=== PATIENT | female | born 1965 | race African-American/Black ===

== ENCOUNTER 2022-03-24 17:26 | Inpatient (IN) | payer MEDICARE, MEDICAID ==
[~2022-03-24 17:26] MED LIST: Iopamidol-370 76% 500 ML 1 ML ONE
[2022-03-24 18:49] LABS: #Basophils 0.1 thou/uL (0.0-0.2); #Eosinphils 0.8 thou/uL (0.0-0.7); #Monocytes 1.3 thou/uL (0.11-0.59); #Neutrophils 13.2 thou/uL (1.40-6.50); %Basophils 0.4 % (0.0-1.0); %Eosinophils 4.2 % (0.0-10.0); %Lymphocytes 20.8 % (21.0-51.0); %Monocytes 6.5 % (0.0-10.0); %Neutrophils 68.2 % (42.0-75.0); Hemoglobin 10.4 g/dL (12.0-16.0); Mean Corpuscular HGB CONC 31.8 g/dL (32.0-36.0); Mean Corpuscular Hemoglobin 31.3 pg (27.0-31.0); Mean Corpuscular Volume 98.6 fl (78.0-98.0); Mean Platelet Volume 7.7 fL (7.4-10.4); Platelet Count 196 thou/uL (130-400); Red Blood Cell (RBC) Count 3.33 mill/uL (4.20-5.40); White Blood Cell (WBC) Count 19.4 thou/uL (4.8-10.8)
[2022-03-24 19:04] LABS: PTT 45.2 sec (22.9-36.1); Prothrombin Time 23.4 sec (12.0-14.7)
[2022-03-24] MEDS ORDERED: Famotidine/PF 20 mg/2ml Vial ONE (19:07)
[2022-03-24] MEDS ORDERED: methylPREDNISolone Sod Succ 40 MG VIAL ONE (19:07)
[2022-03-24] MEDS ORDERED: diphenhydrAMINE 50 MG/ML VIAL ONE (19:07)
[2022-03-24 19:09] LABS: ALT (SGPT) 25 U/L (8-55); AST (SGOT) 75 U/L (5-34); Albumin 2.1 g/dL (3.5-5.0); Alkaline Phosphatase 130 U/L (40-110); Anion Gap 16 mmol/L (10-20); BUN (Urea Nitrogen) 12 mg/dL (9.8-20.1); Calc. Creatinine Clearance 0 mL/min (70-130); Calcium 8.1 mg/dL (7.8-10.44); Carbon Dioxide 23 mmol/L (22-29); Chloride 101 mmol/L (98-107); Estimated GFR 50; Globulin 4.6 g/dL (2.4-3.5); Glucose 94 mg/dL (70-105); Potassium 3.6 mmol/L (3.5-5.1); Protein, Total 6.7 g/dL (6.0-8.3); Sodium 136 mmol/L (136-145)
[2022-03-24] MEDS ORDERED: Vancomycin 1 GM/200 ML (PREMIX) BAG ONE (20:37)
[2022-03-24] MEDS ORDERED: Cefepime 1 GM VIAL ONE (20:37)
[2022-03-24 21:53] LABS: Clarity Cloudy (Clear); Leukocyte Negative (Negative); Specific Gravity, Urine 1.015 (1.002-1.036)
[2022-03-24 21:54] LABS: Glucose, Urine (Dipstick) Negative (Negative); Ketone, Urine Trace mg/dL (Negative); Nitrite Negative (Negative); Protein, Urine (Dipstick) 30 mg/dL (Neg-Trace); Urobilinogen UNABLE TO INTERPRET mg/dL (Less than 2)
[2022-03-24 21:55] LABS: Bilirubin Large (Negative); Blood, Urine Negative (Negative)
[2022-03-24 22:00] LABS: RBC/HPF 0-3 HPF (0-3); WBC/HPF 21-50 HPF (0-3)
[2022-03-24 22:01] LABS: Bacteria/HPF 2+ HPF (None Seen)
[2022-03-24 22:02] LABS: Yeast-Budding 1+ HPF (None Seen)
[2022-03-24 22:09] LABS: Calcium Oxalate Crystals Rare HPF (None Seen)
[2022-03-24] MEDS ORDERED: Ondansetron PF 4 MG/2 ML Vial IVP PRN (23:08)
[2022-03-24] MEDS ORDERED: Guaifenesin DM 100-10/5 ML UDCUP PO PRN (23:08)
[2022-03-24] MEDS ORDERED: Furosemide 40 MG/4 ML VIAL SLOW IVP SCH (23:15)
[2022-03-24] MEDS ORDERED: Morphine 4 MG/ML VIAL SLOW IVP PRN (23:18)
[2022-03-24 23:57] VITALS: BMI 27.3
[2022-03-25] MEDS ORDERED: Meropenem 1 GM in Sodium Chloride 0.9% 100 ML IVPB SCH ×2 (02:00→06:00)
[2022-03-25 02:18] LABS: SARS-CoV-2 NAA Rapid Test Not Detected (NotDetected)
[2022-03-25 06:13] LABS: #Lymphocytes 2.7 thou/uL (1.20-3.40); #Monocytes 0.3 thou/uL (0.11-0.59); #Neutrophils 15.2 thou/uL (1.40-6.50); %Eosinophils 0.1 % (0.0-10.0); %Lymphocytes 14.6 % (21.0-51.0); %Monocytes 1.4 % (0.0-10.0); %Neutrophils 83.8 % (42.0-75.0); Hemoglobin 9.1 g/dL (12.0-16.0); Mean Corpuscular Hemoglobin 30.8 pg (27.0-31.0); Mean Corpuscular Volume 99.5 fl (78.0-98.0); Mean Platelet Volume 7.5 fL (7.4-10.4); Platelet Count 142 thou/uL (130-400); RBC Distribution Width 14.1 % (11.5-14.5); Red Blood Cell (RBC) Count 2.96 mill/uL (4.20-5.40); White Blood Cell (WBC) Count 18.1 thou/uL (4.8-10.8)
[2022-03-25 06:34] LABS: ALT (SGPT) 22 U/L (8-55); AST (SGOT) 69 U/L (5-34); Albumin 1.7 g/dL (3.5-5.0); Alkaline Phosphatase 120 U/L (40-110); Anion Gap 13 mmol/L (10-20); BUN (Urea Nitrogen) 13 mg/dL (9.8-20.1); Calc. Creatinine Clearance 60 mL/min (70-130); Calcium 7.8 mg/dL (7.8-10.44); Carbon Dioxide 22 mmol/L (22-29); Chloride 100 mmol/L (98-107); Estimated GFR 47; Globulin 4.3 g/dL (2.4-3.5); Glucose 142 mg/dL (70-105); Potassium 3.6 mmol/L (3.5-5.1); Sodium 131 mmol/L (136-145)
[2022-03-25] MEDS ORDERED: Electrolyte Replacement Protocol 1 EACH FS SCH (08:30)
[2022-03-25] MEDS ORDERED: Albumin 25% 25 GM/100 ML BOT IVPB SCH ×2 (08:30)
[2022-03-25 08:53] LABS: Magnesium 1.5 mg/dL (1.6-2.6); Phosphorus 4.2 mg/dL (2.3-4.7)
[2022-03-25] MEDS ORDERED: Magnesium 2 GM/50 ML(in water) 2 GM in Premix Bag 1 BAG IVPB SCH (09:00)
[2022-03-25] MEDS: Famotidine 20 MG TAB PO SCH ×2 (10:58→20:56)
[2022-03-25] MEDS: Meropenem 1 GM in Sodium Chloride 0.9% 100 ML IVPB SCH ×2 (10:58→18:10)
[2022-03-25] MEDS: Furosemide 40 MG/4 ML VIAL SLOW IVP SCH (10:59)
[2022-03-25 11:35] LABS: RBC Count-Automated (BF) 22 /cu.mm; WBC/Nucleated-Auto (BF) 67 /cu.mm
[2022-03-25 11:49] LABS: BF Color Yellow; Body Fluid Source Peritoneal Fluid; Clarity Hazy (Clear); Tube # EDTA
[2022-03-25 11:52] LABS: Cell Count Non Hematic 42 %
[2022-03-25 11:53] LABS: BF Segmented Neutrophils 30 %; Lymphocytes 28 %
[2022-03-25 13:11] LABS: Legionella Urinary Ag Negative (Negative); Strep pneumo Urine Ag NEGATIVE (NEGATIVE)
[2022-03-25] MEDS: Albumin 25% 25 GM/100 ML BOT IVPB SCH ×2 (16:45→20:56)
[2022-03-25] MEDS ORDERED: FLU VACC QS2022-23(6MOS UP)/PF 60 MCG/0.5 ML SYRINGE IM ONE (18:00)
[2022-03-25] MEDS: Sodium Bicarbonate Tab 325 MG TAB PO SCH (20:59)
[2022-03-25] MEDS: levETIRAcetam 500 MG TAB PO SCH (20:59)
[2022-03-25] MEDS: Sodium Chloride 1 GM TAB PO SCH (21:00)
[2022-03-26] MEDS: Meropenem 1 GM in Sodium Chloride 0.9% 100 ML IVPB SCH ×3 (01:55→17:58)
[2022-03-26] MEDS: Levothyroxine Sodium 75 MCG TAB PO SCH (05:50)
[2022-03-26] MEDS: Sodium Chloride 1 GM TAB PO SCH ×3 (05:50→21:00)
[2022-03-26 06:35] LABS: #Eosinphils 0.3 thou/uL (0.0-0.7); #Lymphocytes 2.6 thou/uL (1.20-3.40); #Monocytes 1.1 thou/uL (0.11-0.59); #Neutrophils 12.6 thou/uL (1.40-6.50); %Basophils 0.1 % (0.0-1.0); %Eosinophils 1.9 % (0.0-10.0); %Lymphocytes 15.8 % (21.0-51.0); %Monocytes 6.4 % (0.0-10.0); %Neutrophils 75.8 % (42.0-75.0); Hemoglobin 8.8 g/dL (12.0-16.0); Mean Corpuscular HGB CONC 30.8 g/dL (32.0-36.0); Mean Corpuscular Hemoglobin 30.6 pg (27.0-31.0); Mean Corpuscular Volume 99.3 fl (78.0-98.0); Mean Platelet Volume 7.9 fL (7.4-10.4); Platelet Count 167 thou/uL (130-400); RBC Distribution Width 14.2 % (11.5-14.5); Red Blood Cell (RBC) Count 2.87 mill/uL (4.20-5.40); White Blood Cell (WBC) Count 16.6 thou/uL (4.8-10.8)
[2022-03-26 06:41] LABS: INR-International Normal Ratio 2.1; PTT 45.1 sec (22.9-36.1); Prothrombin Time 24.4 sec (12.0-14.7)
[2022-03-26 06:56] LABS: ALT (SGPT) 19 U/L (8-55); AST (SGOT) 59 U/L (5-34); Albumin 2.3 g/dL (3.5-5.0); Alkaline Phosphatase 108 U/L (40-110); Anion Gap 14 mmol/L (10-20); BUN (Urea Nitrogen) 13 mg/dL (9.8-20.1); Bilirubin, Total 8.4 mg/dL (0.2-1.2); Calc. Creatinine Clearance 68 mL/min (70-130); Calcium 8.2 mg/dL (7.8-10.44); Carbon Dioxide 22 mmol/L (22-29); Chloride 104 mmol/L (98-107); Estimated GFR 55; Globulin 3.7 g/dL (2.4-3.5); Glucose 93 mg/dL (70-105); Sodium 137 mmol/L (136-145)
[2022-03-26] MEDS ORDERED: Potassium Chloride 20 MEQ TAB PO SCH (08:00)
[2022-03-26] MEDS: Furosemide 40 MG/4 ML VIAL SLOW IVP SCH (12:14)
[2022-03-26] MEDS: Ascorbic Acid 500 mg Chewable Tablet PO SCH (12:14)
[2022-03-26] MEDS: Folic Acid 1 MG TAB PO SCH (12:14)
[2022-03-26] MEDS: levETIRAcetam 500 MG TAB PO SCH ×2 (12:15→20:08)
[2022-03-26] MEDS: Thiamine 100 MG TAB PO SCH (12:15)
[2022-03-26] MEDS: PHOS-NAK 1 PKT PACK PO SCH (12:16)
[2022-03-26] MEDS: Sodium Bicarbonate Tab 325 MG TAB PO SCH ×2 (12:16→20:08)
[2022-03-26] MEDS: Spironolactone 25 MG TAB PO SCH ×2 (12:17→17:55)
[2022-03-26] MEDS: Famotidine 20 MG TAB PO SCH ×2 (12:17→20:08)
[2022-03-26] MEDS: Cholecalciferol 1,000 UNITS (25 MCG) TAB PO SCH (12:17)
[2022-03-27] MEDS: Meropenem 1 GM in Sodium Chloride 0.9% 100 ML IVPB SCH ×2 (01:08→09:52)
[2022-03-27] MEDS: Levothyroxine Sodium 75 MCG TAB PO SCH (05:13)
[2022-03-27] MEDS: Sodium Chloride 1 GM TAB PO SCH ×3 (05:13→21:30)
[2022-03-27 05:57] LABS: #Eosinphils 0.7 thou/uL (0.0-0.7); #Lymphocytes 3.1 thou/uL (1.20-3.40); #Monocytes 0.9 thou/uL (0.11-0.59); #Neutrophils 7.5 thou/uL (1.40-6.50); %Basophils 0.1 % (0.0-1.0); %Eosinophils 5.4 % (0.0-10.0); %Lymphocytes 25.5 % (21.0-51.0); %Monocytes 7.4 % (0.0-10.0); %Neutrophils 61.6 % (42.0-75.0); Hemoglobin 8.5 g/dL (12.0-16.0); Mean Corpuscular HGB CONC 31.5 g/dL (32.0-36.0); Mean Corpuscular Hemoglobin 31.2 pg (27.0-31.0); Mean Corpuscular Volume 99.1 fl (78.0-98.0); Mean Platelet Volume 7.9 fL (7.4-10.4); Platelet Count 155 thou/uL (130-400); Red Blood Cell (RBC) Count 2.73 mill/uL (4.20-5.40); White Blood Cell (WBC) Count 12.2 thou/uL (4.8-10.8)
[2022-03-27 06:10] LABS: PTT 37.3 sec (22.9-36.1); Prothrombin Time 23.1 sec (12.0-14.7)
[2022-03-27 06:20] LABS: ALT (SGPT) 22 U/L (8-55); AST (SGOT) 80 U/L (5-34); Albumin 2.1 g/dL (3.5-5.0); Alkaline Phosphatase 99 U/L (40-110); Anion Gap 12 mmol/L (10-20); BUN (Urea Nitrogen) 11 mg/dL (9.8-20.1); Bilirubin, Total 7.9 mg/dL (0.2-1.2); Calc. Creatinine Clearance 89 mL/min (70-130); Calcium 7.7 mg/dL (7.8-10.44); Carbon Dioxide 24 mmol/L (22-29); Chloride 106 mmol/L (98-107); Estimated GFR 76; Globulin 3.3 g/dL (2.4-3.5); Glucose 68 mg/dL (70-105); Protein, Total 5.4 g/dL (6.0-8.3); Sodium 139 mmol/L (136-145)
[2022-03-27] MEDS ORDERED: Potassium Chloride 20 MEQ TAB PO SCH (08:00)
[2022-03-27] MEDS: Sodium Bicarbonate Tab 325 MG TAB PO SCH ×2 (08:46→19:54)
[2022-03-27] MEDS: Furosemide 40 MG/4 ML VIAL SLOW IVP SCH (08:47)
[2022-03-27] MEDS: Ascorbic Acid 500 mg Chewable Tablet PO SCH (08:47)
[2022-03-27] MEDS: Famotidine 20 MG TAB PO SCH ×2 (08:47→19:54)
[2022-03-27] MEDS: Folic Acid 1 MG TAB PO SCH (08:47)
[2022-03-27] MEDS: Cholecalciferol 1,000 UNITS (25 MCG) TAB PO SCH (08:47)
[2022-03-27] MEDS: levETIRAcetam 500 MG TAB PO SCH ×2 (08:47→19:54)
[2022-03-27] MEDS: Spironolactone 25 MG TAB PO SCH ×2 (08:47→17:36)
[2022-03-27] MEDS: PHOS-NAK 1 PKT PACK PO SCH (08:47)
[2022-03-27] MEDS: Thiamine 100 MG TAB PO SCH (08:48)
[2022-03-27 11:39] LABS: Bacteria/HPF None Seen HPF (None Seen); Bilirubin Negative (Negative); Blood, Urine Negative (Negative); Clarity Clear (Clear); Glucose, Urine (Dipstick) Normal (Negative); Ketone, Urine Negative (Negative); Leukocyte 75 Leu/uL (Negative); Nitrite Negative (Negative); Protein, Urine (Dipstick) Negative (Neg-Trace); RBC/HPF 0-3 HPF (0-3); Specific Gravity, Urine 1.007 (1.002-1.036); Urobilinogen Normal mg/dL (Less than 2)
[2022-03-27] MEDS: cefTRIAXone\\ROCEPHIN 1 GM in Sodium Chloride 0.9% 100 ML IVPB SCH (14:21)
[2022-03-27] MEDS: Azithromycin 500 MG in Sodium Chloride 0.9% 250 ML 250 ML IVPB SCH (15:17)
[2022-03-28] MEDS: Sodium Chloride 1 GM TAB PO SCH ×3 (04:19→20:44)
[2022-03-28] MEDS: Levothyroxine Sodium 75 MCG TAB PO SCH (04:20)
[2022-03-28 07:34] LABS: #Eosinphils 1.2 thou/uL (0.0-0.7); #Lymphocytes 3.7 thou/uL (1.20-3.40); #Monocytes 1.1 thou/uL (0.11-0.59); #Neutrophils 9.7 thou/uL (1.40-6.50); %Basophils 0.3 % (0.0-1.0); %Eosinophils 7.5 % (0.0-10.0); %Lymphocytes 23.4 % (21.0-51.0); %Monocytes 7.1 % (0.0-10.0); %Neutrophils 61.8 % (42.0-75.0); Mean Corpuscular HGB CONC 31.9 g/dL (32.0-36.0); Mean Corpuscular Hemoglobin 31.7 pg (27.0-31.0); Mean Corpuscular Volume 99.3 fl (78.0-98.0); Mean Platelet Volume 7.4 fL (7.4-10.4); Platelet Count 155 thou/uL (130-400); RBC Distribution Width 14.2 % (11.5-14.5); Red Blood Cell (RBC) Count 2.84 mill/uL (4.20-5.40); White Blood Cell (WBC) Count 15.7 thou/uL (4.8-10.8)
[2022-03-28 07:58] LABS: ALT (SGPT) 23 U/L (8-55); AST (SGOT) 78 U/L (5-34); Alkaline Phosphatase 97 U/L (40-110); Anion Gap 10 mmol/L (10-20); BUN (Urea Nitrogen) 10 mg/dL (9.8-20.1); Bilirubin, Total 7.5 mg/dL (0.2-1.2); Calc. Creatinine Clearance 101 mL/min (70-130); Calcium 7.6 mg/dL (7.8-10.44); Carbon Dioxide 26 mmol/L (22-29); Chloride 106 mmol/L (98-107); Estimated GFR 88; Globulin 3.3 g/dL (2.4-3.5); Glucose 75 mg/dL (70-105); Potassium 3.2 mmol/L (3.5-5.1); Protein, Total 5.3 g/dL (6.0-8.3); Sodium 139 mmol/L (136-145)
[2022-03-28] MEDS ORDERED: Potassium Chloride 20 MEQ TAB PO SCH (08:45)
[2022-03-28] MEDS: PHOS-NAK 1 PKT PACK PO SCH (09:13)
[2022-03-28] MEDS: Cholecalciferol 1,000 UNITS (25 MCG) TAB PO SCH (09:15)
[2022-03-28] MEDS: Folic Acid 1 MG TAB PO SCH (09:15)
[2022-03-28] MEDS: Ascorbic Acid 500 mg Chewable Tablet PO SCH (09:15)
[2022-03-28] MEDS: levETIRAcetam 500 MG TAB PO SCH ×2 (09:16→20:44)
[2022-03-28] MEDS: Spironolactone 25 MG TAB PO SCH ×2 (09:16→16:01)
[2022-03-28] MEDS: Sodium Bicarbonate Tab 325 MG TAB PO SCH ×2 (09:18→20:44)
[2022-03-28] MEDS: Famotidine 20 MG TAB PO SCH ×2 (09:18→20:43)
[2022-03-28] MEDS: Thiamine 100 MG TAB PO SCH (09:19)
[2022-03-28] MEDS: Furosemide 40 MG/4 ML VIAL SLOW IVP SCH (09:21)
[2022-03-28] MEDS: cefTRIAXone\\ROCEPHIN 1 GM in Sodium Chloride 0.9% 100 ML IVPB SCH (12:00)
[2022-03-28] MEDS: Azithromycin 500 MG in Sodium Chloride 0.9% 250 ML 250 ML IVPB SCH (13:28)
[2022-03-29] MEDS: Levothyroxine Sodium 75 MCG TAB PO SCH (05:49)
[2022-03-29] MEDS: Sodium Chloride 1 GM TAB PO SCH ×3 (05:49→20:16)
[2022-03-29 06:33] LABS: ALT (SGPT) 19 U/L (8-55); AST (SGOT) 77 U/L (5-34); Albumin 1.8 g/dL (3.5-5.0); Alkaline Phosphatase 110 U/L (40-110); Anion Gap 13 mmol/L (10-20); BUN (Urea Nitrogen) 9 mg/dL (9.8-20.1); Bilirubin, Total 7.5 mg/dL (0.2-1.2); Calc. Creatinine Clearance 117 mL/min (70-130); Calcium 7.4 mg/dL (7.8-10.44); Carbon Dioxide 24 mmol/L (22-29); Chloride 104 mmol/L (98-107); Estimated GFR 103; Globulin 3.4 g/dL (2.4-3.5); Glucose 77 mg/dL (70-105); Potassium 3.6 mmol/L (3.5-5.1); Protein, Total 5.2 g/dL (6.0-8.3); Sodium 137 mmol/L (136-145)
[2022-03-29 07:10] LABS: #Eosinphils 1.5 thou/uL (0.0-0.7); #Lymphocytes 4.3 thou/uL (1.20-3.40); #Monocytes 1.2 thou/uL (0.11-0.59); #Neutrophils 11.9 thou/uL (1.40-6.50); %Basophils 0.2 % (0.0-1.0); %Eosinophils 7.7 % (0.0-10.0); %Lymphocytes 22.9 % (21.0-51.0); %Monocytes 6.3 % (0.0-10.0); %Neutrophils 62.9 % (42.0-75.0); Hemoglobin 8.8 g/dL (12.0-16.0); Mean Corpuscular HGB CONC 31.8 g/dL (32.0-36.0); Mean Corpuscular Hemoglobin 31.4 pg (27.0-31.0); Mean Corpuscular Volume 98.7 fl (78.0-98.0); Mean Platelet Volume 8.1 fL (7.4-10.4); Platelet Count 145 10x3/uL (130-400); RBC Distribution Width 14.3 % (11.5-14.5); Red Blood Cell (RBC) Count 2.79 mill/uL (4.20-5.40); White Blood Cell (WBC) Count 18.9 10x3/uL (4.8-10.8)
[2022-03-29] MEDS: levETIRAcetam 500 MG TAB PO SCH ×2 (10:03→20:16)
[2022-03-29] MEDS: PHOS-NAK 1 PKT PACK PO SCH (10:03)
[2022-03-29] MEDS: Folic Acid 1 MG TAB PO SCH (10:03)
[2022-03-29] MEDS: Spironolactone 25 MG TAB PO SCH ×2 (10:04→19:10)
[2022-03-29] MEDS: Cholecalciferol 1,000 UNITS (25 MCG) TAB PO SCH (10:04)
[2022-03-29] MEDS: Thiamine 100 MG TAB PO SCH (10:04)
[2022-03-29] MEDS: Sodium Bicarbonate Tab 325 MG TAB PO SCH ×2 (10:04→20:16)
[2022-03-29] MEDS: Famotidine 20 MG TAB PO SCH ×2 (10:05→20:16)
[2022-03-29] MEDS: Ascorbic Acid 500 mg Chewable Tablet PO SCH (10:05)
[2022-03-29] MEDS: cefTRIAXone\\ROCEPHIN 1 GM in Sodium Chloride 0.9% 100 ML IVPB SCH (15:46)
[2022-03-29] MEDS: Furosemide 40 MG/4 ML VIAL SLOW IVP SCH (15:48)
[2022-03-29] MEDS: Azithromycin 500 MG in Sodium Chloride 0.9% 250 ML 250 ML IVPB SCH (19:09)
[2022-03-30] MEDS: Sodium Chloride 1 GM TAB PO SCH (05:49)
[2022-03-30] MEDS: Levothyroxine Sodium 75 MCG TAB PO SCH (05:49)
[2022-03-30] MEDS ORDERED: Furosemide 40 MG TAB PO SCH (07:30)
[2022-03-30 07:37] LABS: Hemoglobin 9.3 g/dL (12.0-16.0); Mean Corpuscular HGB CONC 32.5 g/dL (32.0-36.0); Mean Corpuscular Hemoglobin 32.1 pg (27.0-31.0); Mean Platelet Volume 7.5 fL (7.4-10.4); Platelet Count 143 10x3/uL (130-400); RBC Distribution Width 14.3 % (11.5-14.5); White Blood Cell (WBC) Count 20.4 10x3/uL (4.8-10.8)
[2022-03-30 07:52] LABS: ALT (SGPT) 21 U/L (8-55); AST (SGOT) 65 U/L (5-34); Alkaline Phosphatase 108 U/L (40-110); Anion Gap 11 mmol/L (10-20); BUN (Urea Nitrogen) 8 mg/dL (9.8-20.1); Bilirubin, Total 7.2 mg/dL (0.2-1.2); Calc. Creatinine Clearance 119 mL/min (70-130); Calcium 7.5 mg/dL (7.8-10.44); Carbon Dioxide 26 mmol/L (22-29); Chloride 105 mmol/L (98-107); Estimated GFR 103; Globulin 3.6 g/dL (2.4-3.5); Glucose 88 mg/dL (70-105); Potassium 3.9 mmol/L (3.5-5.1); Protein, Total 5.6 g/dL (6.0-8.3); Sodium 138 mmol/L (136-145)
[2022-03-30 08:45] LABS: Band 3 % (5-11); Eosinophils 3 % (0-10); Lymphocytes 25 % (21-51); MDiff Complete? YES; Monocytes 7 % (0-10); Neutrophil 62 % (42-75); Platelet Morphology Comment Appears Adequate; Polychromasia SLIGHT = 2-3 cells (100X) (0-2/hpf)
[2022-03-30] MEDS: PHOS-NAK 1 PKT PACK PO SCH (09:24)
[2022-03-30] MEDS: Sodium Bicarbonate Tab 325 MG TAB PO SCH (09:24)
[2022-03-30] MEDS: Spironolactone 25 MG TAB PO SCH ×2 (09:25→18:05)
[2022-03-30] MEDS: levETIRAcetam 500 MG TAB PO SCH ×2 (09:25→20:37)
[2022-03-30] MEDS: Famotidine 20 MG TAB PO SCH ×2 (09:25→20:37)
[2022-03-30] MEDS: Cholecalciferol 1,000 UNITS (25 MCG) TAB PO SCH (09:25)
[2022-03-30] MEDS: Folic Acid 1 MG TAB PO SCH (09:25)
[2022-03-30] MEDS: Thiamine 100 MG TAB PO SCH (09:25)
[2022-03-30] MEDS: Ascorbic Acid 500 mg Chewable Tablet PO SCH (09:26)
[2022-03-30] MEDS ORDERED: Sodium Chloride 0.45% 500 ML IV SCH (12:00)
[2022-03-30] MEDS: cefTRIAXone\\ROCEPHIN 1 GM in Sodium Chloride 0.9% 100 ML IVPB SCH (12:39)
[2022-03-30] MEDS: Azithromycin 500 MG in Sodium Chloride 0.9% 250 ML 250 ML IVPB SCH (13:09)
[2022-03-31] MEDS: Levothyroxine Sodium 75 MCG TAB PO SCH (05:10)
[2022-03-31 05:58] LABS: #Basophils 0.1 thou/uL (0.0-0.2); #Eosinphils 1.5 thou/uL (0.0-0.7); #Lymphocytes 4.3 thou/uL (1.20-3.40); #Monocytes 1.6 thou/uL (0.11-0.59); #Neutrophils 15.4 thou/uL (1.40-6.50); %Basophils 0.2 % (0.0-1.0); %Eosinophils 6.7 % (0.0-10.0); %Lymphocytes 18.7 % (21.0-51.0); %Monocytes 7.1 % (0.0-10.0); %Neutrophils 67.2 % (42.0-75.0); Hemoglobin 9.1 g/dL (12.0-16.0); Mean Corpuscular HGB CONC 31.6 g/dL (32.0-36.0); Mean Corpuscular Hemoglobin 31.2 pg (27.0-31.0); Mean Corpuscular Volume 98.6 fl (78.0-98.0); Mean Platelet Volume 8.4 fL (7.4-10.4); Platelet Count 118 10x3/uL (130-400); RBC Distribution Width 14.5 % (11.5-14.5); Red Blood Cell (RBC) Count 2.92 mill/uL (4.20-5.40); White Blood Cell (WBC) Count 22.9 10x3/uL (4.8-10.8)
[2022-03-31 06:20] LABS: ALT (SGPT) 17 U/L (8-55); AST (SGOT) 58 U/L (5-34); Albumin 1.9 g/dL (3.5-5.0); Alkaline Phosphatase 119 U/L (40-110); Anion Gap 12 mmol/L (10-20); BUN (Urea Nitrogen) 9 mg/dL (9.8-20.1); Bilirubin, Total 7.2 mg/dL (0.2-1.2); Calc. Creatinine Clearance 103 mL/min (70-130); Calcium 7.4 mg/dL (7.8-10.44); Carbon Dioxide 22 mmol/L (22-29); Chloride 104 mmol/L (98-107); Estimated GFR 91; Globulin 3.6 g/dL (2.4-3.5); Glucose 101 mg/dL (70-105); Potassium 3.6 mmol/L (3.5-5.1); Protein, Total 5.5 g/dL (6.0-8.3); Sodium 134 mmol/L (136-145)
[2022-03-31 07:04] LABS: HBSAg Index 0.32 S/CO (0-0.99); Hep B Surf Ag Non-Reactive S/CO (NonReactive); Hep C IgG Ab Non-Reactive (NonReactive); Hep C Index 0.12 S/CO (0-0.79)
[2022-03-31] MEDS: Cholecalciferol 1,000 UNITS (25 MCG) TAB PO SCH (07:47)
[2022-03-31] MEDS: Spironolactone 25 MG TAB PO SCH ×2 (07:47→17:11)
[2022-03-31] MEDS: Ascorbic Acid 500 mg Chewable Tablet PO SCH (07:47)
[2022-03-31] MEDS: levETIRAcetam 500 MG TAB PO SCH ×2 (07:48→20:46)
[2022-03-31] MEDS: Thiamine 100 MG TAB PO SCH (07:48)
[2022-03-31] MEDS: Famotidine 20 MG TAB PO SCH ×2 (07:48→20:46)
[2022-03-31] MEDS: Folic Acid 1 MG TAB PO SCH (07:48)
[2022-03-31] MEDS ORDERED: Vancomycin 1.5 GRAM/300 ML BAG 1.5 GM in Premix Bag 1 BAG IVPB SCH (08:15)
[2022-03-31 11:09] LABS: Syphilis Antibody Nonreactive (Nonreactive); Syphilis Antibody Index 0.07 S/CO (<1.00 Non-Reactive)
[2022-03-31] MEDS: cefTRIAXone\\ROCEPHIN 1 GM in Sodium Chloride 0.9% 100 ML IVPB SCH (12:20)
[2022-03-31] MEDS ORDERED: Ketamine 50 MG/ML (10ML VIAL) ONE (13:56)
[2022-03-31] MEDS ORDERED: PROPOFOL 200 MG/20 ML VIAL ONE (14:03)
[2022-03-31] MEDS ORDERED: Vancomycin 1 GM in Premix Bag 1 BAG IVPB SCH (21:00)
[2022-04-01] MEDS: Levothyroxine Sodium 75 MCG TAB PO SCH (05:51)
[2022-04-01 06:37] LABS: HIV (1/2) Antibody/Antigen Non-Reactive (NonReactive); HIV 1/2 INDEX 0.17 S/CO (<1.00)
[2022-04-01 07:21] LABS: #Basophils 0.1 thou/uL (0.0-0.2); #Eosinphils 1.4 thou/uL (0.0-0.7); #Lymphocytes 4.6 thou/uL (1.20-3.40); #Monocytes 1.7 thou/uL (0.11-0.59); #Neutrophils 15.4 thou/uL (1.40-6.50); %Basophils 0.4 % (0.0-1.0); %Lymphocytes 19.7 % (21.0-51.0); %Monocytes 7.4 % (0.0-10.0); %Neutrophils 66.5 % (42.0-75.0); Hemoglobin 10.9 g/dL (12.0-16.0); Mean Corpuscular HGB CONC 31.8 g/dL (32.0-36.0); Mean Corpuscular Hemoglobin 31.8 pg (27.0-31.0); Mean Platelet Volume 8.7 fL (7.4-10.4); Platelet Count 140 10x3/uL (130-400); RBC Distribution Width 14.8 % (11.5-14.5); Red Blood Cell (RBC) Count 3.42 mill/uL (4.20-5.40); White Blood Cell (WBC) Count 23.1 10x3/uL (4.8-10.8)
[2022-04-01 07:33] LABS: ALT (SGPT) 18 U/L (8-55); AST (SGOT) 63 U/L (5-34); Albumin 1.9 g/dL (3.5-5.0); Alkaline Phosphatase 131 U/L (40-110); Anion Gap 15 mmol/L (10-20); BUN (Urea Nitrogen) 9 mg/dL (9.8-20.1); Bilirubin, Total 8.6 mg/dL (0.2-1.2); Calc. Creatinine Clearance 103 mL/min (70-130); Calcium 7.9 mg/dL (7.8-10.44); Carbon Dioxide 20 mmol/L (22-29); Chloride 102 mmol/L (98-107); Estimated GFR 91; Globulin 4.3 g/dL (2.4-3.5); Glucose 74 mg/dL (70-105); Potassium 3.7 mmol/L (3.5-5.1); Protein, Total 6.2 g/dL (6.0-8.3); Sodium 133 mmol/L (136-145)
[2022-04-01] MEDS: Ascorbic Acid 500 mg Chewable Tablet PO SCH (10:29)
[2022-04-01] MEDS: Cholecalciferol 1,000 UNITS (25 MCG) TAB PO SCH (10:29)
[2022-04-01] MEDS: Famotidine 20 MG TAB PO SCH ×2 (10:29→20:32)
[2022-04-01] MEDS: levETIRAcetam 500 MG TAB PO SCH ×2 (10:29→20:32)
[2022-04-01] MEDS: Folic Acid 1 MG TAB PO SCH (10:29)
[2022-04-01] MEDS: Thiamine 100 MG TAB PO SCH (10:29)
[2022-04-01] MEDS: Spironolactone 25 MG TAB PO SCH ×2 (10:34→17:22)
[2022-04-01 20:22] LABS: Vancomycin, Trough 14.9 ug/mL
[2022-04-02] MEDS: Levothyroxine Sodium 75 MCG TAB PO SCH (05:07)
[2022-04-02 06:06] LABS: #Basophils 0.1 thou/uL (0.0-0.2); #Eosinphils 1.3 thou/uL (0.0-0.7); #Lymphocytes 3.9 thou/uL (1.20-3.40); #Monocytes 1.4 thou/uL (0.11-0.59); %Basophils 0.3 % (0.0-1.0); %Eosinophils 6.7 % (0.0-10.0); %Monocytes 7.4 % (0.0-10.0); %Neutrophils 64.6 % (42.0-75.0); Hemoglobin 8.9 g/dL (12.0-16.0); Mean Corpuscular HGB CONC 30.9 g/dL (32.0-36.0); Mean Corpuscular Hemoglobin 30.1 pg (27.0-31.0); Mean Corpuscular Volume 97.6 fl (78.0-98.0); Mean Platelet Volume 8.5 fL (7.4-10.4); Platelet Count 123 10x3/uL (130-400); RBC Distribution Width 14.7 % (11.5-14.5); Red Blood Cell (RBC) Count 2.96 mill/uL (4.20-5.40); White Blood Cell (WBC) Count 18.6 10x3/uL (4.8-10.8)
[2022-04-02 06:32] LABS: ALT (SGPT) 17 U/L (8-55); AST (SGOT) 59 U/L (5-34); Albumin 1.8 g/dL (3.5-5.0); Alkaline Phosphatase 112 U/L (40-110); Anion Gap 9 mmol/L (10-20); BUN (Urea Nitrogen) 10 mg/dL (9.8-20.1); Bilirubin, Total 7.2 mg/dL (0.2-1.2); Calc. Creatinine Clearance 106 mL/min (70-130); Calcium 7.3 mg/dL (7.8-10.44); Carbon Dioxide 26 mmol/L (22-29); Chloride 105 mmol/L (98-107); Estimated GFR 94; Globulin 3.3 g/dL (2.4-3.5); Glucose 77 mg/dL (70-105); Potassium 3.8 mmol/L (3.5-5.1); Protein, Total 5.1 g/dL (6.0-8.3); Sodium 136 mmol/L (136-145)
[2022-04-02] MEDS: Famotidine 20 MG TAB PO SCH ×2 (09:25→20:54)
[2022-04-02] MEDS: Folic Acid 1 MG TAB PO SCH (09:25)
[2022-04-02] MEDS: Ascorbic Acid 500 mg Chewable Tablet PO SCH (09:25)
[2022-04-02] MEDS: levETIRAcetam 500 MG TAB PO SCH ×2 (09:25→20:54)
[2022-04-02] MEDS: Spironolactone 25 MG TAB PO SCH ×2 (09:25→17:24)
[2022-04-02] MEDS: Thiamine 100 MG TAB PO SCH (09:25)
[2022-04-02] MEDS: Cholecalciferol 1,000 UNITS (25 MCG) TAB PO SCH (09:26)
[2022-04-03] MEDS: Levothyroxine Sodium 75 MCG TAB PO SCH (05:16)
[2022-04-03 06:31] LABS: ALT (SGPT) 18 U/L (8-55); AST (SGOT) 67 U/L (5-34); Albumin 1.7 g/dL (3.5-5.0); Alkaline Phosphatase 111 U/L (40-110); Anion Gap 11 mmol/L (10-20); BUN (Urea Nitrogen) 11 mg/dL (9.8-20.1); Bilirubin, Total 6.5 mg/dL (0.2-1.2); Calc. Creatinine Clearance 108 mL/min (70-130); Calcium 7.6 mg/dL (7.8-10.44); Carbon Dioxide 22 mmol/L (22-29); Chloride 104 mmol/L (98-107); Estimated GFR 95; Globulin 3.7 g/dL (2.4-3.5); Glucose 91 mg/dL (70-105); Potassium 3.7 mmol/L (3.5-5.1); Protein, Total 5.4 g/dL (6.0-8.3); Sodium 133 mmol/L (136-145)
[2022-04-03 08:04] LABS: Mean Corpuscular Hemoglobin 30.8 pg (27.0-31.0); Mean Corpuscular Volume 96.2 fl (78.0-98.0); Mean Platelet Volume 8.5 fL (7.4-10.4); Platelet Count 129 10x3/uL (130-400); RBC Distribution Width 14.8 % (11.5-14.5); Red Blood Cell (RBC) Count 2.92 mill/uL (4.20-5.40); White Blood Cell (WBC) Count 20.6 10x3/uL (4.8-10.8)
[2022-04-03 09:31] LABS: Band 1 % (5-11); Eosinophils 9 % (0-10); Lymphocytes 22 % (21-51); MDiff Complete? YES; Monocytes 3 % (0-10); Neutrophil 65 % (42-75); RBC Morphology Normal
[2022-04-03] MEDS: Spironolactone 25 MG TAB PO SCH ×2 (10:06→19:46)
[2022-04-03] MEDS: Thiamine 100 MG TAB PO SCH (10:07)
[2022-04-03] MEDS: Folic Acid 1 MG TAB PO SCH (10:07)
[2022-04-03] MEDS: Ascorbic Acid 500 mg Chewable Tablet PO SCH (10:07)
[2022-04-03] MEDS: Cholecalciferol 1,000 UNITS (25 MCG) TAB PO SCH (10:07)
[2022-04-03] MEDS: levETIRAcetam 500 MG TAB PO SCH ×2 (10:07→21:33)
[2022-04-03] MEDS: Famotidine 20 MG TAB PO SCH ×2 (10:07→21:33)
[2022-04-04 05:51] LABS: #Basophils 0.1 thou/uL (0.0-0.2); #Eosinphils 1.3 thou/uL (0.0-0.7); #Monocytes 1.3 thou/uL (0.11-0.59); #Neutrophils 12.9 thou/uL (1.40-6.50); %Basophils 0.5 % (0.0-1.0); %Eosinophils 6.5 % (0.0-10.0); %Lymphocytes 20.4 % (21.0-51.0); %Monocytes 6.5 % (0.0-10.0); %Neutrophils 66.1 % (42.0-75.0); Hemoglobin 9.9 g/dL (12.0-16.0); Mean Corpuscular HGB CONC 31.1 g/dL (32.0-36.0); Mean Corpuscular Hemoglobin 31.1 pg (27.0-31.0); Mean Platelet Volume 8.2 fL (7.4-10.4); Platelet Count 146 10x3/uL (130-400); RBC Distribution Width 15.5 % (11.5-14.5); Red Blood Cell (RBC) Count 3.18 mill/uL (4.20-5.40); White Blood Cell (WBC) Count 19.5 10x3/uL (4.8-10.8)
[2022-04-04] MEDS: Levothyroxine Sodium 75 MCG TAB PO SCH (06:07)
[2022-04-04 06:41] LABS: ALT (SGPT) 21 U/L (8-55); AST (SGOT) 73 U/L (5-34); Albumin 1.8 g/dL (3.5-5.0); Alkaline Phosphatase 132 U/L (40-110); Anion Gap 12 mmol/L (10-20); BUN (Urea Nitrogen) 12 mg/dL (9.8-20.1); Bilirubin, Total 6.4 mg/dL (0.2-1.2); Calc. Creatinine Clearance 101 mL/min (70-130); Calcium 7.8 mg/dL (7.8-10.44); Carbon Dioxide 24 mmol/L (22-29); Chloride 103 mmol/L (98-107); Estimated GFR 88; Globulin 3.7 g/dL (2.4-3.5); Glucose 74 mg/dL (70-105); Protein, Total 5.5 g/dL (6.0-8.3); Sodium 135 mmol/L (136-145)
[2022-04-04] MEDS: Ascorbic Acid 500 mg Chewable Tablet PO SCH (09:01)
[2022-04-04] MEDS: levETIRAcetam 500 MG TAB PO SCH ×2 (09:01→21:30)
[2022-04-04] MEDS: Thiamine 100 MG TAB PO SCH (09:01)
[2022-04-04] MEDS: Cholecalciferol 1,000 UNITS (25 MCG) TAB PO SCH (09:01)
[2022-04-04] MEDS: Spironolactone 25 MG TAB PO SCH ×2 (09:01→16:31)
[2022-04-04] MEDS: Folic Acid 1 MG TAB PO SCH (09:01)
[2022-04-04] MEDS: Famotidine 20 MG TAB PO SCH ×2 (09:01→21:00)
[2022-04-04] MEDS ORDERED: Sodium Bicarbonate 2.5 MEQ/5 ML VIAL ONE (13:54)
[2022-04-04] MEDS ORDERED: Lidocaine 2% PF 5 ML VIAL ONE (13:54)
[2022-04-04 15:24] LABS: RBC Count-Automated (BF) 67 /cu.mm; WBC/Nucleated-Auto (BF) 166 /cu.mm
[2022-04-04 15:40] LABS: BF Color Yellow; Body Fluid Source Paracentesis Fluid; Clarity Hazy (Clear); Tube # EDTA
[2022-04-04 15:41] LABS: BF Segmented Neutrophils 41 %; Cell Count Non Hematic 43 %; Lymphocytes 16 %
[2022-04-04] MEDS: Albumin 25% 25 GM/100 ML BOT IVPB SCH ×2 (16:31→22:46)
[2022-04-05] MEDS: Albumin 25% 25 GM/100 ML BOT IVPB SCH (04:11)
[2022-04-05] MEDS: Levothyroxine Sodium 75 MCG TAB PO SCH (05:30)
[2022-04-05 06:26] LABS: #Lymphocytes 2.9 thou/uL (1.20-3.40); #Monocytes 0.9 thou/uL (0.11-0.59); #Neutrophils 9.1 thou/uL (1.40-6.50); %Basophils 0.2 % (0.0-1.0); %Eosinophils 7.1 % (0.0-10.0); %Lymphocytes 20.6 % (21.0-51.0); %Monocytes 6.4 % (0.0-10.0); %Neutrophils 65.7 % (42.0-75.0); Hemoglobin 7.8 g/dL (12.0-16.0); Mean Corpuscular HGB CONC 31.4 g/dL (32.0-36.0); Mean Corpuscular Hemoglobin 30.5 pg (27.0-31.0); Mean Corpuscular Volume 97.1 fl (78.0-98.0); Mean Platelet Volume 8.6 fL (7.4-10.4); Platelet Count 122 10x3/uL (130-400); RBC Distribution Width 15.6 % (11.5-14.5); Red Blood Cell (RBC) Count 2.57 mill/uL (4.20-5.40); White Blood Cell (WBC) Count 13.8 10x3/uL (4.8-10.8)
[2022-04-05 06:38] LABS: Anion Gap 11 mmol/L (10-20); BUN (Urea Nitrogen) 11 mg/dL (9.8-20.1); Calc. Creatinine Clearance 103 mL/min (70-130); Carbon Dioxide 23 mmol/L (22-29); Chloride 105 mmol/L (98-107); Estimated GFR 91; Glucose 85 mg/dL (70-105); Potassium 4.1 mmol/L (3.5-5.1); Sodium 135 mmol/L (136-145)
[2022-04-05] MEDS: Spironolactone 25 MG TAB PO SCH ×2 (09:11→17:34)
[2022-04-05] MEDS: Folic Acid 1 MG TAB PO SCH (09:11)
[2022-04-05] MEDS: Famotidine 20 MG TAB PO SCH (09:11)
[2022-04-05] MEDS: levETIRAcetam 500 MG TAB PO SCH (09:11)
[2022-04-05] MEDS: Thiamine 100 MG TAB PO SCH (09:11)
[2022-04-05] MEDS: Ascorbic Acid 500 mg Chewable Tablet PO SCH (09:11)
[2022-04-05] MEDS: Cholecalciferol 1,000 UNITS (25 MCG) TAB PO SCH (09:11)
[2022-04-07 01:23] VITALS: BP 126/71; TEMP 98.1
== END 2022-04-05 20:15 | disposition home health service (06) | DRG 871 ==
LOC: ERS 17:26 → SJJU 21:56
PROVIDERS: ADMIT Internal Medicine; ATTEND Internal Medicine
PROC: 3E03329 Introduction of Other Anti-infective into Peripheral Vein, Percutaneous Approach (ICD-10-PCS; 2022-03-24)
PROC: 0W9G3ZZ Drainage of Peritoneal Cavity, Percutaneous Approach (ICD-10-PCS; principal; 2022-03-25)
PROC: 0W9G3ZZ Drainage of Peritoneal Cavity, Percutaneous Approach (ICD-10-PCS; 2022-04-04)
DX: A41.9 Sepsis, unspecified organism (principal); J18.9 Pneumonia, unspecified organism; K76.7 Hepatorenal syndrome; E87.1 Hypo-osmolality and hyponatremia; N17.9 Acute kidney failure, unspecified; K70.31 Alcoholic cirrhosis of liver with ascites; Z20.822 Contact with and (suspected) exposure to COVID-19; J44.9 Chronic obstructive pulmonary disease, unspecified; I10 Essential (primary) hypertension; I73.9 Peripheral vascular disease, unspecified; F41.9 Anxiety disorder, unspecified; F32.A Depression, unspecified; E80.6 Other disorders of bilirubin metabolism; F10.10 Alcohol abuse, uncomplicated; K76.82 Hepatic encephalopathy; D69.6 Thrombocytopenia, unspecified; G40.909 Epilepsy, unspecified, not intractable, without status epilepticus; Z98.51 Tubal ligation status; Z90.49 Acquired absence of other specified parts of digestive tract; Z87.891 Personal history of nicotine dependence; Z79.899 Other long term (current) drug therapy; Z79.82 Long term (current) use of aspirin; Z88.1 Allergy status to other antibiotic agents; Z91.041 Radiographic dye allergy status; Z88.2 Allergy status to sulfonamides
CPT/HCPCS: 36415; 49083; 51701; 71045; 71250; 74177; 74181; 80048; 80053; 80202; 81001; 81003; 81015; 82140; 83605; 83735; 83880; 84100; 84145; 84157; 84484; 85025; 85060; 85610; 85730; 86780; 86803; 87040; 87070; 87081; 87086; 87149; 87186; 87205; 87340; 87389; 87449; 87804; 87811; 87899; 88112; 89051; 93005; 93306; 93312; 96365; 96375; J0456; J0692; J0696; J1200; J1940; J1956; J2001; J2185; J2704; J2920; J3370; J3475; J3490; J7050; P9047; Q9967; S0028; U0002

== ENCOUNTER 2022-04-15 00:22 | Observation (INO) | payer MEDICARE, MEDICAID ==
[2022-04-15 02:28] LABS: #Basophils 0.1 thou/uL (0.0-0.2); #Eosinphils 1.3 thou/uL (0.0-0.7); #Lymphocytes 3.7 thou/uL (1.20-3.40); #Monocytes 1.1 thou/uL (0.11-0.59); #Neutrophils 10.6 thou/uL (1.40-6.50); %Basophils 0.4 % (0.0-1.0); %Lymphocytes 22.2 % (21.0-51.0); %Monocytes 6.4 % (0.0-10.0); Hemoglobin 8.8 g/dL (12.0-16.0); Mean Corpuscular HGB CONC 30.9 g/dL (32.0-36.0); Mean Corpuscular Hemoglobin 29.9 pg (27.0-31.0); Mean Corpuscular Volume 96.6 fl (78.0-98.0); Platelet Count 194 10x3/uL (130-400); RBC Distribution Width 16.8 % (11.5-14.5); Red Blood Cell (RBC) Count 2.96 mill/uL (4.20-5.40); White Blood Cell (WBC) Count 16.8 10x3/uL (4.8-10.8)
[2022-04-15 02:39] LABS: INR-International Normal Ratio 1.6; Prothrombin Time 19.7 sec (12.0-14.7)
[2022-04-15 02:41] LABS: PTT 31.4 sec (22.9-36.1)
[2022-04-15 02:50] LABS: ALT (SGPT) 23 U/L (8-55); AST (SGOT) 75 U/L (5-34); Albumin 2.6 g/dL (3.5-5.0); Alkaline Phosphatase 147 U/L (40-110); Anion Gap 17 mmol/L (10-20); BUN (Urea Nitrogen) 6 mg/dL (9.8-20.1); Bilirubin, Total 6.5 mg/dL (0.2-1.2); Calc. Creatinine Clearance 0 mL/min (70-130); Calcium 8.1 mg/dL (7.8-10.44); Carbon Dioxide 15 mmol/L (22-29); Chloride 102 mmol/L (98-107); Estimated GFR 99; Globulin 4.2 g/dL (2.4-3.5); Glucose 88 mg/dL (70-105); Lipase 18 U/L (8-78); Potassium 4.1 mmol/L (3.5-5.1); Protein, Total 6.8 g/dL (6.0-8.3); Sodium 130 mmol/L (136-145)
[2022-04-15 04:04] LABS: Bacteria/HPF 2+ HPF (None Seen); Bilirubin Negative (Negative); Blood, Urine Trace (Negative); Clarity Turbid (Clear); Glucose, Urine (Dipstick) Normal (Negative); Ketone, Urine Negative (Negative); Leukocyte 500 Leu/uL (Negative); Nitrite Negative (Negative); Protein, Urine (Dipstick) Negative (Neg-Trace); Specific Gravity, Urine 1.004 (1.002-1.036); Squamous Epithelial None Seen HPF (0-3); Urobilinogen Normal mg/dL (Less than 2); WBC/HPF Greater than 50 HPF (0-3); pH, Urine 5.5 (5.0-9.0)
[2022-04-15] MEDS ORDERED: Albumin 25% 25 GM/100 ML BOT IVPB SCH (08:31)
[2022-04-15] MEDS ORDERED: Ondansetron ODT 4 MG TAB PO PRN (08:33)
[2022-04-15] MEDS ORDERED: Senokot S 8.6-50 MG TAB PO PRN (08:33)
[2022-04-15] MEDS ORDERED: Ondansetron PF 4 MG/2 ML Vial IVP PRN (08:33)
[2022-04-15] MEDS ORDERED: Senokot 8.6 MG TAB PO PRN (08:41)
[2022-04-15] MEDS ORDERED: Ergocalciferol 1.25 MG(50,000 UNITS) CAP PO SCH (09:00)
[2022-04-15 09:06] VITALS: BMI 26.6
[2022-04-15] MEDS ORDERED: Lorazepam 2 MG/ML VIAL IM PRN (09:14)
[2022-04-15] MEDS ORDERED: Electrolyte Replacement Protocol FS SCH (09:15)
[2022-04-15] MEDS: levETIRAcetam 500 MG TAB PO SCH ×2 (10:01→20:10)
[2022-04-15] MEDS: cefTRIAXone\\ROCEPHIN 1 GM in Sodium Chloride 0.9% 100 ML IVPB SCH (10:01)
[2022-04-15] MEDS: Thiamine 100 MG TAB PO SCH (10:02)
[2022-04-15] MEDS: Magnesium Oxide 400 MG TAB PO SCH (10:02)
[2022-04-15] MEDS: Ascorbic Acid 500 mg Chewable Tablet PO SCH (10:02)
[2022-04-15] MEDS: Folic Acid 1 MG TAB PO SCH (10:02)
[2022-04-15 16:06] LABS: SARS-CoV-2 NAA Rapid Test Not Detected (NotDetected)
[2022-04-15] MEDS: Spironolactone 25 MG TAB PO SCH (16:19)
[2022-04-16] MEDS ORDERED: Levothyroxine Sodium 75 MCG TAB PO SCH (06:00)
[2022-04-16 06:47] LABS: #Eosinphils 0.9 thou/uL (0.0-0.7); #Lymphocytes 2.5 thou/uL (1.20-3.40); #Monocytes 0.8 thou/uL (0.11-0.59); #Neutrophils 7.3 thou/uL (1.40-6.50); %Basophils 0.3 % (0.0-1.0); %Eosinophils 7.6 % (0.0-10.0); %Monocytes 6.8 % (0.0-10.0); %Neutrophils 63.3 % (42.0-75.0); Hemoglobin 7.5 g/dL (12.0-16.0); Mean Corpuscular HGB CONC 32.1 g/dL (32.0-36.0); Mean Corpuscular Hemoglobin 30.6 pg (27.0-31.0); Mean Corpuscular Volume 95.1 fl (78.0-98.0); Platelet Count 159 10x3/uL (130-400); RBC Distribution Width 16.7 % (11.5-14.5); Red Blood Cell (RBC) Count 2.46 mill/uL (4.20-5.40); White Blood Cell (WBC) Count 11.6 10x3/uL (4.8-10.8)
[2022-04-16 07:03] LABS: Anion Gap 11 mmol/L (10-20); BUN (Urea Nitrogen) 5 mg/dL (9.8-20.1); Calc. Creatinine Clearance 127 mL/min (70-130); Calcium 7.9 mg/dL (7.8-10.44); Carbon Dioxide 24 mmol/L (22-29); Chloride 107 mmol/L (98-107); Estimated GFR 106; Glucose 86 mg/dL (70-105); Potassium 3.5 mmol/L (3.5-5.1); Sodium 138 mmol/L (136-145)
[2022-04-16] MEDS: Thiamine 100 MG TAB PO SCH (08:34)
[2022-04-16] MEDS: Magnesium Oxide 400 MG TAB PO SCH (08:34)
[2022-04-16] MEDS: Folic Acid 1 MG TAB PO SCH (08:34)
[2022-04-16] MEDS: Spironolactone 25 MG TAB PO SCH (08:34)
[2022-04-16] MEDS: Ascorbic Acid 500 mg Chewable Tablet PO SCH (08:34)
[2022-04-16] MEDS: levETIRAcetam 500 MG TAB PO SCH (08:34)
[2022-04-16] MEDS: cefTRIAXone\\ROCEPHIN 1 GM in Sodium Chloride 0.9% 100 ML IVPB SCH (08:34)
[2022-04-16] MEDS ORDERED: Multivit, Therapeutic 1 TAB PO SCH (09:00)
[2022-04-16 11:45] VITALS: BP 113/77; TEMP 97.8
[2022-04-16] MEDS ORDERED: Potassium Chloride 20 MEQ TAB PO SCH (12:30)
== END 2022-04-16 17:34 | disposition home or self-care (01) ==
LOC: SUATTDRO 00:22 → ERS 00:22 → T4-B 05:54
PROVIDERS: ADMIT Internal Medicine; ATTEND Internal Medicine
PROC: 0W9G3ZZ Drainage of Peritoneal Cavity, Percutaneous Approach (ICD-10-PCS; principal; 2022-04-15)
DX: K74.60 Unspecified cirrhosis of liver (principal); R18.8 Other ascites; N39.0 Urinary tract infection, site not specified; J18.9 Pneumonia, unspecified organism; D72.829 Elevated white blood cell count, unspecified; E87.1 Hypo-osmolality and hyponatremia; E88.09 Other disorders of plasma-protein metabolism, not elsewhere classified; I10 Essential (primary) hypertension; E03.9 Hypothyroidism, unspecified; J44.9 Chronic obstructive pulmonary disease, unspecified; G40.909 Epilepsy, unspecified, not intractable, without status epilepticus; I25.10 Atherosclerotic heart disease of native coronary artery without angina pectoris; D64.9 Anemia, unspecified; F10.10 Alcohol abuse, uncomplicated; Z87.891 Personal history of nicotine dependence; Z79.890 Hormone replacement therapy; Z79.899 Other long term (current) drug therapy; Z95.5 Presence of coronary angioplasty implant and graft; Z20.822 Contact with and (suspected) exposure to COVID-19
CPT/HCPCS: 0240U; 49083; 71045; 74176; 80048; 80053; 83690; 83880; 85025 ×2; 85610; 85730; 87086; 99285; P9047; 36415; 81003; 81015; 96374; 96375; 96376; G0378; J0696; J3490

== ENCOUNTER 2022-04-30 21:38 | Inpatient (IN) | payer MEDICARE, MEDICAID ==
[2022-04-30 22:33] LABS: #Basophils 0.1 thou/uL (0.0-0.2); #Eosinphils 0.7 thou/uL (0.0-0.7); #Lymphocytes 4.4 thou/uL (1.20-3.40); #Monocytes 1.3 thou/uL (0.11-0.59); #Neutrophils 9.7 thou/uL (1.40-6.50); %Basophils 0.3 % (0.0-1.0); %Eosinophils 4.2 % (0.0-10.0); %Lymphocytes 27.5 % (21.0-51.0); %Monocytes 8.1 % (0.0-10.0); %Neutrophils 59.9 % (42.0-75.0); Hemoglobin 8.3 g/dL (12.0-16.0); Mean Corpuscular HGB CONC 32.6 g/dL (32.0-36.0); Mean Corpuscular Hemoglobin 30.1 pg (27.0-31.0); Mean Corpuscular Volume 92.2 fl (78.0-98.0); Mean Platelet Volume 8.5 fL (7.4-10.4); Platelet Count 157 10x3/uL (130-400); RBC Distribution Width 17.3 % (11.5-14.5); Red Blood Cell (RBC) Count 2.77 mill/uL (4.20-5.40); White Blood Cell (WBC) Count 16.1 10x3/uL (4.8-10.8)
[2022-04-30 22:44] LABS: INR-International Normal Ratio 1.8; PTT 39.8 sec (22.9-36.1); Prothrombin Time 21.2 sec (12.0-14.7)
[2022-04-30 22:53] LABS: ALT (SGPT) 20 U/L (8-55); AST (SGOT) 87 U/L (5-34); Albumin 2.5 g/dL (3.5-5.0); Alkaline Phosphatase 144 U/L (40-110); Anion Gap 14 mmol/L (10-20); BUN (Urea Nitrogen) 5 mg/dL (9.8-20.1); Bilirubin, Total 4.8 mg/dL (0.2-1.2); Calc. Creatinine Clearance 0 mL/min (70-130); Calcium 7.8 mg/dL (7.8-10.44); Carbon Dioxide 20 mmol/L (22-29); Chloride 93 mmol/L (98-107); Estimated GFR 99; Globulin 4.2 g/dL (2.4-3.5); Glucose 96 mg/dL (70-105); Lipase 18 U/L (8-78); Potassium 3.5 mmol/L (3.5-5.1); Protein, Total 6.7 g/dL (6.0-8.3); Sodium 123 mmol/L (136-145)
[2022-04-30] MEDS ORDERED: Furosemide 40 MG/4 ML VIAL ONE (23:20)
[2022-05-01] MEDS ORDERED: Lidocaine 1% PF 5 ML VIAL ONE (00:28)
[2022-05-01 01:16] LABS: Bilirubin Negative (Negative); Blood, Urine Negative (Negative); Clarity Clear (Clear); Glucose, Urine (Dipstick) Normal (Negative); Ketone, Urine Negative (Negative); Leukocyte 250 Leu/uL (Negative); Nitrite Negative (Negative); Protein, Urine (Dipstick) Negative (Neg-Trace); RBC/HPF 0-3 HPF (0-3); Specific Gravity, Urine 1.004 (1.002-1.036); Squamous Epithelial 0-3 HPF (0-3); Urobilinogen Normal mg/dL (Less than 2); pH, Urine 5.5 (5.0-9.0)
[2022-05-01] MEDS ORDERED: cefTRIAXone\\ROCEPHIN 1 GM VIAL ONE (01:25)
[2022-05-01 01:31] LABS: Bacteria/HPF Rare-Few HPF (None Seen)
[2022-05-01] MEDS ORDERED: Ondansetron PF 4 MG/2 ML Vial IVP PRN (01:51)
[2022-05-01] MEDS ORDERED: Acetaminophen 500 MG TAB PO PRN (01:54)
[2022-05-01] MEDS ORDERED: Lorazepam 1 MG TAB PO PRN (01:55)
[2022-05-01] MEDS ORDERED: Lorazepam 2 MG/ML VIAL IM PRN (01:55)
[2022-05-01] MEDS ORDERED: Electrolyte Replacement Protocol 1 EACH FS SCH (02:00)
[2022-05-01] MEDS ORDERED: Ondansetron PF 4 MG/2 ML Vial ONE (02:09)
[2022-05-01] MEDS ORDERED: Morphine 4 MG/ML VIAL ONE (02:09)
[2022-05-01] MEDS ORDERED: Potassium Chloride 20 MEQ TAB PO SCH ×2 (02:15→11:15)
[2022-05-01] MEDS ORDERED: Potassium Chloride 20 MEQ TAB ONE ×2 (02:21→11:29)
[2022-05-01] MEDS: Thiamine HCl 200 MG/2 ML VIAL SLOW IVP SCH ×2 (02:30→22:15)
[2022-05-01 02:36] LABS: RBC Count-Automated (BF) 227 /cu.mm; WBC/Nucleated-Auto (BF) 140 /cu.mm
[2022-05-01 02:40] LABS: BF Color Yellow; Body Fluid Source Paracentesis Fluid; Clarity Hazy (Clear); Tube # 1
[2022-05-01 03:11] LABS: BF Segmented Neutrophils 42 %; Cell Count Non Hematic 58 %
[2022-05-01 04:59] LABS: ALT (SGPT) 18 U/L (8-55); AST (SGOT) 80 U/L (5-34); Albumin 2.2 g/dL (3.5-5.0); Alkaline Phosphatase 133 U/L (40-110); Anion Gap 14 mmol/L (10-20); BUN (Urea Nitrogen) 5 mg/dL (9.8-20.1); Calc. Creatinine Clearance 0 mL/min (70-130); Calcium 7.6 mg/dL (7.8-10.44); Carbon Dioxide 19 mmol/L (22-29); Chloride 95 mmol/L (98-107); Estimated GFR 104; Globulin 3.8 g/dL (2.4-3.5); Glucose 95 mg/dL (70-105); Magnesium 1.2 mg/dL (1.6-2.6); Potassium 2.9 mmol/L (3.5-5.1); Sodium 125 mmol/L (136-145)
[2022-05-01 05:08] LABS: #Eosinphils 0.5 thou/uL (0.0-0.7); #Lymphocytes 2.7 thou/uL (1.20-3.40); #Neutrophils 7.1 thou/uL (1.40-6.50); %Basophils 0.3 % (0.0-1.0); %Eosinophils 4.5 % (0.0-10.0); %Monocytes 9.1 % (0.0-10.0); %Neutrophils 62.1 % (42.0-75.0); Anisocytosis SLIGHT = 6-15 cells (100X) (0-5/hpf); Hemoglobin 8.2 g/dL (12.0-16.0); MDiff Complete? YES; Mean Corpuscular HGB CONC 32.7 g/dL (32.0-36.0); Mean Corpuscular Hemoglobin 30.1 pg (27.0-31.0); Mean Corpuscular Volume 92.3 fl (78.0-98.0); Mean Platelet Volume 8.7 fL (7.4-10.4); Platelet Count 114 10x3/uL (130-400); Platelet Morphology Comment Appears Decreased; RBC Distribution Width 17.2 % (11.5-14.5); Red Blood Cell (RBC) Count 2.71 mill/uL (4.20-5.40); Target Cells MODERATE= 6-15 cells (100X) (0-1/hpf); White Blood Cell (WBC) Count 11.4 10x3/uL (4.8-10.8)
[2022-05-01] MEDS ORDERED: Furosemide 20 MG/2 ML VIAL ONE (05:55)
[2022-05-01] MEDS ORDERED: Levothyroxine Sodium 75 MCG TAB PO SCH (06:00)
[2022-05-01] MEDS: Furosemide 20 MG/2 ML VIAL SLOW IVP SCH ×2 (06:15→14:27)
[2022-05-01 06:17] LABS: SARS-CoV-2 NAA Rapid Test Not Detected (NotDetected)
[2022-05-01] MEDS ORDERED: Magnesium Sulfate In Water 4 GM in Premix Bag 1 BAG IVPB SCH (08:00)
[2022-05-01] MEDS ORDERED: Folic Acid 1 MG TAB ONE (08:02)
[2022-05-01] MEDS: Folic Acid 1 MG TAB PO SCH (08:10)
[2022-05-01 08:37] LABS: Potassium 3.1 mmol/L (3.5-5.1)
[2022-05-01] MEDS ORDERED: Sodium Bicarbonate 2.5 MEQ/5 ML VIAL ONE (08:53)
[2022-05-01] MEDS ORDERED: Lidocaine 2% PF 5 ML VIAL ONE ×2 (08:53→09:43)
[2022-05-01] MEDS ORDERED: Potassium Chloride 20 MEQ in Premix Bag 1 BAG IVPB SCH (10:00)
[2022-05-01] MEDS: Multivit, Therapeutic 1 TAB PO SCH (10:35)
[2022-05-01] MEDS: levETIRAcetam 500 MG TAB PO SCH ×3 (10:35→21:09)
[2022-05-01] MEDS: Spironolactone 25 MG TAB PO SCH ×2 (10:35→21:08)
[2022-05-01] MEDS ORDERED: Albumin 25% 25 GM/100 ML BOT IVPB SCH (11:15)
[2022-05-01 14:16] VITALS: BMI 21.9
[2022-05-01 15:14] LABS: Anion Gap 14 mmol/L (10-20); BUN (Urea Nitrogen) 4 mg/dL (9.8-20.1); Calc. Creatinine Clearance 89 mL/min (70-130); Calcium 8.2 mg/dL (7.8-10.44); Carbon Dioxide 22 mmol/L (22-29); Chloride 96 mmol/L (98-107); Estimated GFR 99; Glucose 113 mg/dL (70-105); Magnesium 2.2 mg/dL (1.6-2.6); Potassium 3.2 mmol/L (3.5-5.1); Sodium 129 mmol/L (136-145)
[2022-05-01] MEDS ORDERED: Non-Formulary Item 1 EACH (Lactulose 10 Gm/15ml Oral Sol 10 GM/15 ML Ml) PO SCH (21:00)
[2022-05-01] MEDS: Docusate 100 MG CAP PO SCH (21:08)
[2022-05-01] MEDS ORDERED: Dicyclomine 10 MG CAP PO SCH (21:45)
[2022-05-02] MEDS ORDERED: Lorazepam 1 MG TAB PO PRN (01:55)
[2022-05-02] MEDS: Levothyroxine Sodium 75 MCG TAB PO SCH (05:28)
[2022-05-02] MEDS: Furosemide 20 MG/2 ML VIAL SLOW IVP SCH ×2 (05:29→14:52)
[2022-05-02 07:33] LABS: #Eosinphils 0.3 thou/uL (0.0-0.7); #Lymphocytes 2.5 thou/uL (1.20-3.40); #Monocytes 0.7 thou/uL (0.11-0.59); #Neutrophils 5.3 thou/uL (1.40-6.50); %Basophils 0.1 % (0.0-1.0); %Eosinophils 3.8 % (0.0-10.0); %Lymphocytes 27.9 % (21.0-51.0); %Monocytes 7.9 % (0.0-10.0); %Neutrophils 60.2 % (42.0-75.0); Hemoglobin 7.2 g/dL (12.0-16.0); Mean Corpuscular HGB CONC 32.6 g/dL (32.0-36.0); Mean Corpuscular Hemoglobin 30.7 pg (27.0-31.0); Mean Corpuscular Volume 94.2 fl (78.0-98.0); Mean Platelet Volume 8.2 fL (7.4-10.4); Platelet Count 113 10x3/uL (130-400); RBC Distribution Width 17.3 % (11.5-14.5); Red Blood Cell (RBC) Count 2.35 mill/uL (4.20-5.40); White Blood Cell (WBC) Count 8.8 10x3/uL (4.8-10.8)
[2022-05-02 07:48] LABS: ALT (SGPT) 15 U/L (8-55); AST (SGOT) 54 U/L (5-34); Albumin 2.4 g/dL (3.5-5.0); Alkaline Phosphatase 118 U/L (40-110); Anion Gap 12 mmol/L (10-20); BUN (Urea Nitrogen) 4 mg/dL (9.8-20.1); Bilirubin, Total 3.2 mg/dL (0.2-1.2); Calc. Creatinine Clearance 116 mL/min (70-130); Calcium 7.8 mg/dL (7.8-10.44); Carbon Dioxide 24 mmol/L (22-29); Chloride 102 mmol/L (98-107); Estimated GFR 102; Globulin 2.9 g/dL (2.4-3.5); Glucose 91 mg/dL (70-105); Magnesium 1.8 mg/dL (1.6-2.6); Protein, Total 5.3 g/dL (6.0-8.3); Sodium 135 mmol/L (136-145)
[2022-05-02] MEDS ORDERED: Potassium Chloride 20 MEQ TAB PO SCH ×2 (08:00→14:00)
[2022-05-02] MEDS: Ascorbic Acid 500 mg Chewable Tablet PO SCH (08:50)
[2022-05-02] MEDS: Folic Acid 1 MG TAB PO SCH (08:50)
[2022-05-02] MEDS: Multivit, Therapeutic 1 TAB PO SCH (08:50)
[2022-05-02] MEDS: levETIRAcetam 500 MG TAB PO SCH ×3 (08:51→20:58)
[2022-05-02] MEDS: Magnesium Oxide 400 MG TAB PO SCH (08:51)
[2022-05-02] MEDS: Spironolactone 25 MG TAB PO SCH ×2 (08:51→20:58)
[2022-05-02] MEDS: Docusate 100 MG CAP PO SCH ×2 (08:55→20:44)
[2022-05-02] MEDS ORDERED: Furosemide 40 MG TAB PO SCH (09:00)
[2022-05-02] MEDS ORDERED: Morphine 4 MG/ML VIAL SLOW IVP PRN (09:51)
[2022-05-02 12:19] LABS: Potassium 3.4 mmol/L (3.5-5.1)
[2022-05-02] MEDS ORDERED: Magnesium 2 GM/50 ML(in water) 2 GM in Premix Bag 1 BAG IVPB SCH (14:00)
[2022-05-02 18:30] LABS: Potassium 3.6 mmol/L (3.5-5.1)
[2022-05-02] MEDS: Thiamine HCl 200 MG/2 ML VIAL SLOW IVP SCH (20:58)
[2022-05-03] MEDS ORDERED: Lorazepam 1 MG TAB PO PRN (01:55)
[2022-05-03] MEDS: Furosemide 20 MG/2 ML VIAL SLOW IVP SCH ×2 (05:03→14:20)
[2022-05-03] MEDS: Levothyroxine Sodium 75 MCG TAB PO SCH (05:03)
[2022-05-03 07:12] LABS: Magnesium 1.5 mg/dL (1.6-2.6); Phosphorus 3.2 mg/dL (2.3-4.7)
[2022-05-03 08:39] LABS: #Eosinphils 0.4 thou/uL (0.0-0.7); #Monocytes 0.7 thou/uL (0.11-0.59); %Basophils 0.3 % (0.0-1.0); %Eosinophils 4.7 % (0.0-10.0); %Lymphocytes 32.6 % (21.0-51.0); %Monocytes 7.7 % (0.0-10.0); %Neutrophils 54.7 % (42.0-75.0); Mean Corpuscular HGB CONC 32.1 g/dL (32.0-36.0); Mean Corpuscular Hemoglobin 30.6 pg (27.0-31.0); Mean Corpuscular Volume 95.3 fl (78.0-98.0); Mean Platelet Volume 8.7 fL (7.4-10.4); Platelet Count 121 10x3/uL (130-400); RBC Distribution Width 17.7 % (11.5-14.5); White Blood Cell (WBC) Count 9.2 10x3/uL (4.8-10.8)
[2022-05-03] MEDS ORDERED: Ergocalciferol 1.25 MG(50,000 UNITS) CAP PO SCH (09:00)
[2022-05-03 09:03] LABS: ALT (SGPT) 16 U/L (8-55); AST (SGOT) 54 U/L (5-34); Albumin 2.4 g/dL (3.5-5.0); Alkaline Phosphatase 119 U/L (40-110); Anion Gap 13 mmol/L (10-20); BUN (Urea Nitrogen) Less than 4 mg/dL (9.8-20.1); Bilirubin, Total 3.1 mg/dL (0.2-1.2); Calc. Creatinine Clearance 108 mL/min (70-130); Calcium 8.1 mg/dL (7.8-10.44); Carbon Dioxide 25 mmol/L (22-29); Chloride 104 mmol/L (98-107); Estimated GFR 102; Globulin 3.2 g/dL (2.4-3.5); Glucose 88 mg/dL (70-105); Potassium 3.8 mmol/L (3.5-5.1); Protein, Total 5.6 g/dL (6.0-8.3); Sodium 138 mmol/L (136-145)
[2022-05-03] MEDS: Docusate 100 MG CAP PO SCH (09:41)
[2022-05-03] MEDS: Ascorbic Acid 500 mg Chewable Tablet PO SCH (09:41)
[2022-05-03] MEDS: Folic Acid 1 MG TAB PO SCH (09:41)
[2022-05-03] MEDS: Spironolactone 25 MG TAB PO SCH (09:42)
[2022-05-03] MEDS: Multivit, Therapeutic 1 TAB PO SCH (09:42)
[2022-05-03] MEDS: levETIRAcetam 500 MG TAB PO SCH (09:42)
[2022-05-03] MEDS: Magnesium Oxide 400 MG TAB PO SCH (09:42)
[2022-05-03] MEDS ORDERED: Magnesium 2 GM/50 ML(in water) 2 GM in Premix Bag 1 BAG IVPB SCH (09:45)
[2022-05-03 11:58] VITALS: BP 109/72; TEMP 98.7
[2022-05-04] MEDS ORDERED: Lorazepam 0.5 MG TAB PO PRN (01:55)
[2022-05-04] MEDS ORDERED: Thiamine 100 MG TAB PO SCH (09:00)
== END 2022-05-03 14:39 | disposition home health service (06) | DRG 433 ==
LOC: ERS 21:38 → ERHOLD 05-01 01:38 → T4-A 05-01 13:57 → OBSVTOIN 05-02 09:40
PROVIDERS: ADMIT Internal Medicine; ATTEND Internal Medicine
PROC: 0W9G3ZZ Drainage of Peritoneal Cavity, Percutaneous Approach (ICD-10-PCS; principal; 2022-05-01)
DX: K70.31 Alcoholic cirrhosis of liver with ascites (principal); D68.4 Acquired coagulation factor deficiency; E87.1 Hypo-osmolality and hyponatremia; Z20.822 Contact with and (suspected) exposure to COVID-19; I25.10 Atherosclerotic heart disease of native coronary artery without angina pectoris; J44.9 Chronic obstructive pulmonary disease, unspecified; I10 Essential (primary) hypertension; E03.9 Hypothyroidism, unspecified; F41.9 Anxiety disorder, unspecified; E87.70 Fluid overload, unspecified; F10.10 Alcohol abuse, uncomplicated; G40.909 Epilepsy, unspecified, not intractable, without status epilepticus; E87.6 Hypokalemia; E83.42 Hypomagnesemia; D64.9 Anemia, unspecified; Z79.899 Other long term (current) drug therapy; Z90.49 Acquired absence of other specified parts of digestive tract; Z95.5 Presence of coronary angioplasty implant and graft; Z98.51 Tubal ligation status; Z82.49 Family history of ischemic heart disease and other diseases of the circulatory system; Z71.41 Alcohol abuse counseling and surveillance of alcoholic
CPT/HCPCS: 36415; 49083; 80053; 81003; 81015; 83690; 83735; 83880; 84100; 85025; 85060; 85610; 85730; 87070; 87205; 89051; 96365; 96375; 96376; G0378; J0696; J1940; J2001; J2270; J2405; J3411; J3475; P9047; U0002

== ENCOUNTER 2022-06-01 19:04 | Emergency (ER) | payer MEDICARE, MEDICAID ==
[2022-06-01 20:54] LABS: #Eosinphils 0.4 thou/uL (0.0-0.7); #Lymphocytes 3.3 thou/uL (1.20-3.40); #Monocytes 0.8 thou/uL (0.11-0.59); #Neutrophils 5.7 thou/uL (1.40-6.50); %Basophils 0.4 % (0.0-1.0); %Eosinophils 3.8 % (0.0-10.0); %Lymphocytes 32.2 % (21.0-51.0); %Monocytes 7.7 % (0.0-10.0); Hemoglobin 9.3 g/dL (12.0-16.0); Mean Corpuscular HGB CONC 31.5 g/dL (32.0-36.0); Mean Corpuscular Hemoglobin 29.7 pg (27.0-31.0); Mean Corpuscular Volume 94.3 fl (78.0-98.0); Mean Platelet Volume 8.3 fL (7.4-10.4); Platelet Count 133 10x3/uL (130-400); RBC Distribution Width 14.5 % (11.5-14.5); Red Blood Cell (RBC) Count 3.14 mill/uL (4.20-5.40); White Blood Cell (WBC) Count 10.2 10x3/uL (4.8-10.8)
[2022-06-01 21:17] LABS: Bilirubin Negative (Negative); Blood, Urine Negative (Negative); Clarity Turbid (Clear); Glucose, Urine (Dipstick) Normal (Negative); Ketone, Urine Negative (Negative); Leukocyte 500 Leu/uL (Negative); Nitrite Negative (Negative); Protein, Urine (Dipstick) 20 mg/dL (Neg-Trace); Specific Gravity, Urine 1.016 (1.002-1.036); Squamous Epithelial 21-50 HPF (0-3); WBC/HPF Greater than 50 HPF (0-3); pH, Urine 5.5 (5.0-9.0)
[2022-06-01 21:40] LABS: Bacteria/HPF 1+ HPF (None Seen)
[2022-06-01 21:41] LABS: RBC/HPF None Seen HPF (0-3)
== END 2022-06-01 21:02 | disposition home or self-care (01) ==
LOC: ERS 19:04
DX: R18.8 Other ascites (principal); I10 Essential (primary) hypertension; J44.9 Chronic obstructive pulmonary disease, unspecified; Z87.891 Personal history of nicotine dependence
CPT/HCPCS: 81003; 81015; 83605; 85025; 99284

== ENCOUNTER 2022-06-19 12:00 | Day surgery (SDC) | payer MEDICARE, MEDICAID ==
[2022-06-19] MEDS ORDERED: Lidocaine 1% PF 5 ML VIAL ONE (12:20)
[2022-06-19] MEDS ORDERED: Sodium Bicarbonate 2.5 MEQ/5 ML VIAL ONE (12:20)
[2022-06-19 14:31] VITALS: BP 116/68; TEMP 98.8
== END 2022-06-19 14:00 | disposition home or self-care (01) ==
LOC: ULT 12:00
PROVIDERS: ATTEND Physician Assistant Medical
PROC: 0W9G3ZZ Drainage of Peritoneal Cavity, Percutaneous Approach (ICD-10-PCS; principal; 2022-06-19)
DX: K70.31 Alcoholic cirrhosis of liver with ascites (principal); K76.89 Other specified diseases of liver; E03.9 Hypothyroidism, unspecified
CPT/HCPCS: 49083